=== PATIENT | male | born 1990 | race Hispanic/Latino ===

== ENCOUNTER → 2022-01-26 | Outpatient (CLI) | payer OTHER | LOC: M RAD 07:45 | PROVIDERS: ATTEND Physician Assistant | DX: M67.431 Ganglion, right wrist (principal) ==

== ENCOUNTER → 2023-03-31 | Outpatient (CLI) | payer OTHER ==
[~2023-03-31] MED LIST: PROHANCE 279.3MG/ML 15ML VIAL ONE; PROHANCE 279.3MG/ML 5ML VIAL ONE
== END ==
LOC: M PLAIMG 07:24
PROVIDERS: ATTEND Orthopaedic Surgery Hand Surgery
DX: R22.31 Localized swelling, mass and lump, right upper limb (principal); S63.8X1A Sprain of other part of right wrist and hand, initial encounter; X58.XXXA Exposure to other specified factors, initial encounter; Y92.9 Unspecified place or not applicable; Y93.9 Activity, unspecified; Y99.9 Unspecified external cause status
CPT/HCPCS: 73223; A9576